=== PATIENT | female | born 1955 | race Two or more races ===

== ENCOUNTER 2017-07-29 19:51 | Emergency (ER) | payer OTHER ==
[~2017-07-29] VITALS: Ht 157.5 cm; Wt 79.8 kg
[~2017-07-29 19:51] MED LIST: ACETAMINOPHEN-1 EAC1 ORAL; ASPIRIN-LOW81 MG ORAL; BENAZEPRIL HCL20 MG ORAL; BP PILL; COLACE100 MG ORAL; ENALAPRIL MALEA10 MG ORAL; HYDROCHLOROTHIA25 MG ORAL; IBUPROFEN600 MG PO; IBUPROFEN800 MG ORAL; INSULIN; METFORMIN HCL1000 M1 ORAL; NORCO 5-325 TA1 EACH ORAL; NOVOLIN R100 UNIT/1 SUBQ; RANITIDINE HCL150 MG ORAL; UNOBMED; ZOFRAN ODT4 MG ORAL
[2017-07-29] MEDS ORDERED: DiphenhydrAMINE 50mg/ml Inj IVP ONE (20:15)
[2017-07-29] MEDS ORDERED: Metoclopramide 10mg/2ml Inj IVP ONE (20:15)
[2017-07-29] MEDS ORDERED: Morphine Sulfate 4mg/ml Inj IVP ONE (20:15)
[2017-07-29 20:35] LABS: ANION GAP 11 mmol/L (5-15); BLOOD UREA NITROGEN 16 mg/dL (7-18); CALCIUM 9.4 MG/DL (8.5-10.1); CARBON DIOXIDE 26 MMOL/L (21-32); CHLORIDE 100 MMOL/L (98-107); CREATININE 0.8 MG/DL (0.55-1.30); POTASSIUM 3.7 MMOL/L (3.5-5.1); SODIUM 137 MMOL/L (136-145)
[2017-07-29 20:40] LABS: ALANINE AMINOTRANSFERASE 65 U/L (12-78); ALBUMIN 4.1 G/DL (3.4-5.0); ALKALINE PHOSPHATASE 64 U/L (46-116); ASPARTATE AMINO TRANSFERASE 41 U/L (15-37); BILIRUBIN,TOTAL 0.3 MG/DL (0.2-1.0)
[2017-07-29 20:56] LABS: BASOPHILS % (AUTO) 1.3 % (0.0-2.0); HEMATOCRIT 42.9 % (37.0-47.0); LYMPHOCYTES % (AUTO) 32.1 % (20.0-45.0); MEAN CORPUSCULAR VOLUME 92 FL (80-99); MONOCYTES % (AUTO) 6.8 % (1.0-10.0); NEUTROPHILS % (AUTO) 57.9 % (45.0-75.0); PLATELET COUNT 335 K/UL (150-450); RED BLOOD COUNT 4.65 M/UL (4.20-5.40); RED CELL DISTRIBUTION WIDTH 11.3 % (11.6-14.8); WHITE BLOOD COUNT 8.9 K/UL (4.8-10.8)
[2017-07-29] MEDS ORDERED: PREDNISONE20 MG ORAL (21:41)
[2017-07-29] MEDS ORDERED: ACYCLOVIR400 MG ORAL (21:41)
[2017-07-29 21:52] VITALS: BP 137/67
--- NOTE | 2017-07-30 08:38 | Diagnostic Imaging Report ---
Indication: Headache Technique: Continuous helical CT scanning of the head was performed without intravenous contrast material. Axial and coronal 5 mm sections were generated. Radiation dose was minimized using automated exposure control Dose: Total Dose Length Product - DLP 1403.[address] Dose Index - CTDIvol(s) 70.38 mGy. Comparison: 03/06/2015 Findings: The ventricular system is normal in size and configuration. There is no shift of midline structures. No abnormal extra-axial fluid collections are noted. There is no evidence of intracerebral bleeding. No other abnormal high or low density areas are noted within the brain. The calvarium is intact. The riddle-white differentiation is normal Impression: Normal CT scan of the head without contrast material. This agrees with the preliminary interpretation provided overnight by [facility]erad[facility] service. The CT scanner at [facility] is accredited by the [employer] and the scans are performed using protocols designed to limit radiation exposure to as low as reasonably achievable to attain images of sufficient resolution adequate for diagnostic evaluation.
--- NOTE | 2017-07-31 02:06 | Emergency Room Report ---
History of Present Illness General Chief Complaint: Headache Source: Patient Present Illness HPI 62-year-old female presents ED complaining of headache 1 day. Was seen by PMD and referred here to rule out Weber's palsy. Pain is left-sided, sharp, 9/10. Denies photophobia or blurry vision. Denies neck stiffness. Denies nausea or vomiting. Denies slurred speech. No other aggravating or relieving factors. Denies any other associated symptoms Allergies: Coded Allergies: NO KNOWN ALLERGIES (Unverified Allergy, Unknown, 03/04/15) Patient History Past Medical History: DM, HTN Past Surgical History: none Pertinent Family History: none Social History: Denies: smoking, alcohol use, drug use Now: No Immunizations: UTD Reviewed Nursing Documentation: PMH: Agreed; PSxH: Agreed Nursing Documentation-PMH Hx Hypertension: Yes Hx Diabetes: Yes Review of Systems All Other Systems: negative except mentioned in HPI Physical Exam Vital Signs Date Time Temp Pulse Resp B/P (MAP) Pulse Ox O2 Delivery O2 Flow Rate FiO2 07/29/17 19:53 98.3 64 14 137/67 95 Room Air 98.2 Sp02 EP Interpretation: reviewed, normal General Appearance: no apparent distress, alert, GCS 15, non-toxic Head: normocephalic, atraumatic Eyes: bilateral eye normal inspection, bilateral eye PERRL ENT: hearing grossly normal, normal pharynx, no angioedema, normal voice Neck: full range of motion, supple/symm/no masses Respiratory: chest non-tender, lungs clear, normal breath sounds, speaking full sentences Cardiovascular #1: regular rate, rhythm, no edema Cardiovascular #2: 2+ carotid (R), 2+ carotid (L), 2+ radial (R), 2+ radial (L) , 2+ dorsalis pedis (R), 2+ dorsalis pedis (L) Gastrointestinal: normal bowel sounds, non tender, soft, non-distended, no guarding, no rebound Rectal: deferred Genitourinary: normal inspection, no CVA tenderness Musculoskeletal: back normal, gait/station normal, normal range of motion, non- tender Neurologic: alert, oriented x3, responsive, motor strength/tone normal, sensory intact, speech normal, other - R sided facial droop, unable to raise R eyebrow Psychiatric: judgement/insight normal, memory normal, mood/affect normal, no suicidal/homicidal ideation Reflexes: 3+ bicep (R), 3+ bicep (L), 3+ tricep (R), 3+ tricep (L), 3+ knee (R) , 3+ knee (L) Skin: normal color, no rash, warm/dry, well hydrated Lymphatic: no adenopathy Medical Decision Making Diagnostic Impression: Primary Impression: Weber's palsy ER Course Hospital Course 62-year-old female presents to ED complaining of headache 1 day, right-sided facial droop Differential diagnoses include: migraine, CVA/TIA, bells palsy Clinical course Patient placed on stretcher. on case monitor. After initial history, physical exam reveals an elderly female in no acute distress. There is no nuchal rigidity. Extraocular movements intact. There is no sensory deficit. Some mild facial droop on the right side. Unable to raise her eyebrow on the right. 5 out of 5 motor in both arms and legs. No sensory deficit I ordered labs, CT head, meds labs unremarkable CT brain - no acute process noted Discussed findings with patient and family. I agree with PMD assessment of Weber 's palsy. We will prescribe prednisone and acyclovir. Close follow-up with PMD I. I feel this is a highly complex case requiring extensive working including EKG/Rhythm strip, Xray/CT/US, Blood/urine lab work, repeat exams while in ED, and administration of strong opiates/narcotics for pain control, admission to hospital or close patient follow up. Diagnosis - [place] palsy Stable and discharged to home with prescription for acyclovir, prednisone. Follow-up with PMD. Return to ED if symptoms recur or worsen Labs Test 07/29/17 20:15 White Blood Count 8.9 K/UL (4.8-10.8) Red Blood Count 4.65 M/UL (4.20-5.40) Hemoglobin 15.0 G/DL (12.0-16.0) Hematocrit 42.9 % (37.0-47.0) Mean Corpuscular Volume 92 FL (80-99) Mean Corpuscular Hemoglobin 32.3 PG (27.0-31.0) Mean Corpuscular Hemoglobin Concent 35.0 G/DL (32.0-36.0) Red Cell Distribution Width 11.3 % (11.6-14.8) Platelet Count 335 K/UL (150-450) Mean Platelet Volume 7.5 FL (6.5-10.1) Neutrophils (%) (Auto) 57.9 % (45.0-75.0) Lymphocytes (%) (Auto) 32.1 % (20.0-45.0) Monocytes (%) (Auto) 6.8 % (1.0-10.0) Eosinophils (%) (Auto) 2.0 % (0.0-3.0) Basophils (%) (Auto) 1.3 % (0.0-2.0) Sodium Level 137 MMOL/L (136-145) Potassium Level 3.7 MMOL/L (3.5-5.1) Chloride Level 100 MMOL/L (98-107) Carbon Dioxide Level 26 MMOL/L (21-32) Anion Gap 11 mmol/L (5-15) Blood Urea Nitrogen 16 mg/dL (7-18) Creatinine 0.8 MG/DL (0.55-1.30) Estimat Glomerular Filtration Rate > 60 mL/min (>60) Glucose Level 184 MG/DL (74-106) Calcium Level 9.4 MG/DL (8.5-10.1) Total Bilirubin 0.3 MG/DL (0.2-1.0) Aspartate Amino Transf (AST/SGOT) 41 U/L (15-37) Alanine Aminotransferase (ALT/SGPT) 65 U/L (12-78) Alkaline Phosphatase 64 U/L (46-116) Total Protein 8.3 G/DL (6.4-8.2) Albumin 4.1 G/DL (3.4-5.0) Globulin 4.2 g/dL Albumin/Globulin Ratio 1.0 (1.0-2.7) CT/MRI/US Diagnostic Results CT/MRI/US Diagnostic Results : Imaging Test Ordered: CT Head Impression no acute process Last Vital Signs Date Time Temp Pulse Resp B/P (MAP) Pulse Ox O2 Delivery O2 Flow Rate FiO2 07/29/17 21:52 98.3 14 137/67 95 Room Air 98.2 07/29/17 19:53 64 Status: improved Disposition: HOME, SELF-CARE Condition: Stable Scripts Prednisone* (PREDNISONE*) 20 Mg Tablet 40 MG ORAL DAILY, #10 TAB Prov: Jefry Prince MD 07/29/17 Acyclovir* (ACYCLOVIR*) 400 Mg Tablet 400 MG ORAL FIVE TIMES A DAY for 10 Days, TAB Prov: Jefry Prince MD 07/29/17 Patient Instructions: Weber Palsy Jefry Prince MD July 31, 2017 02:06
== END 2017-07-29 22:07 | disposition home or self-care (01) ==
LOC: EMR 20:40
DX: G51.0 Bell's palsy (principal); R51 Headache; E11.9 Type 2 diabetes mellitus without complications; I10 Essential (primary) hypertension
CPT/HCPCS: 36415; 70450; 80053; 85025; 96374; 96375; 99284; J1200; J2270; J2765

== ENCOUNTER 2017-09-03 16:52 | Emergency (ER) | payer OTHER ==
[~2017-09-03] VITALS: Ht 160 cm; Wt 72.6 kg
[~2017-09-03 16:52] MED LIST changes: +ACYCLOVIR400 MG ORAL; +PREDNISONE20 MG ORAL
[2017-09-03 17:23] VITALS: BP 135/70
[2017-09-03] MEDS ORDERED: Acetaminophen 500mg (ES) tab ORAL ONE (18:00)
--- NOTE | 2017-09-03 18:55 | Emergency Room Report ---
History of Present Illness General Chief Complaint: General Complaint Source: Patient Present Illness HPI 62-year-old female patient presents to ER complaining of left eyelid drooping and headache for the past 8 days. Reports hx of headache. Patient was previously seen in the ER one month ago for similar symptoms in her right eye, diagnosed with Weber's palsy at that time. Imaging and labs performed at that time negative for acute disease. States she followed up with primary care but has not received referral to neurology, was seen by primary care provider today and instructed reports the ER so that she could have neurological referral because not able to get a referral done by PCP office. Complains of nose, mouth , ear pain. Denies difficulty walking. Denies difficulty with speech. Denies chest pain, shortness of breath, abdominal pain. Denies muscle weakness. Denies difficulty eating. Denies eye crusting, FB sensation, or pain with eye movement. Allergies: Coded Allergies: NO KNOWN ALLERGIES (Unverified Allergy, Unknown, 03/04/15) Patient History Past Medical History: see triage record Reviewed Nursing Documentation: PMH: Agreed; PSxH: Agreed Nursing Documentation-PMH Past Medical History: No History, Except For Hx Hypertension: Yes Hx Diabetes: Yes Review of Systems All Other Systems: negative except mentioned in HPI Physical Exam Vital Signs Date Time Temp Pulse Resp B/P (MAP) Pulse Ox O2 Delivery O2 Flow Rate FiO2 09/03/17 17:09 98.1 66 16 135/70 94 Room Air 98.1 Sp02 EP Interpretation: reviewed, normal General Appearance: well appearing, no apparent distress, alert, GCS 15, non- toxic Head: normocephalic, atraumatic Eyes: bilateral eye normal inspection, bilateral eye PERRL ENT: hearing grossly normal, normal pharynx, no angioedema, normal voice, uvula midline, moist mucus membranes Neck: full range of motion, no meningismus Respiratory: lungs clear, normal breath sounds, no rhonchi, no respiratory distress, no accessory muscle use, no wheezing, speaking full sentences Cardiovascular #1: regular rate, rhythm, no edema Genitourinary: no CVA tenderness Musculoskeletal: back normal, digits/nails normal, gait/station normal, normal range of motion, non-tender Neurologic: alert, oriented x3, responsive, stna III-XII nml as tested, motor strength/tone normal, SLR negative, sensory intact, cerebellar normal, normal gait, speech normal, other - Left eyelid droop, Able to open and close, Able to smile, able to furrow eyebrows; Negative Kernig, negative Brudzinski Psychiatric: mood/affect normal Skin: no rash Medical Decision Making PA Attestation Dr. Borden is my supervising Physician whom patient management has been discussed with. Diagnostic Impression: Primary Impression: Headache Additional Impression: Drooping eyelid ER Course Pt presents to ED c/o headache and eye droop. DDX considered but are not limited to migraine, cluster AVILES, tension AVILES, meningitis, ICH, [place] palsy, myasthenia gravis, Lyme disease. negative Kernig and Brudzinski, low suspicion for meningitis. VITAL SIGNS are WNL, patient is afebrile ER COURSE patient initially reported unable to open eye at all however during course of ER stay visualize patient able to open left eye slightly, no injection noted. Physical exam shows left eyelid drooping, full ROM of EOM when eyelid raised, eyebrows able to be furrowed, no loss of smile. remained of physical exam benign. 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 Cranial nerves intact, no focal neuro deficits, low suspicion for stroke. Patient had labs performed previously, does not require repeat labs at this time , reviewed previous report from previous visit at [facility]. Patient complains of vision loss however was able to state how many fingers we being held. Patient complains of generalized headache that is causing neck pain and other symptoms, likely tension headache, will provide treatment. Patient seen and evaluated by Dr. Borden. Will order MRI to rule out underlying pathology. Low suspicion for myasthenia gravis at this time, patient has no complaints of muscle weakness, breathing difficulties. However, patient needs followup with outpatient neuro for further treatment and evaluation. Due to length of symptom, hx of symptoms, no chest pain, no palpitations, no loss of strength or sensations in extremities, low suspicion for cerebrovascular event, does not require labs at this time. MRI negative for acute disease, no infarct. CXR negative for acute disease. Low suspicion for Weber's palsy, patient able to furrow brow and wrinkle forehead. Low suspicion for stroke due to length of symptoms and onset. Droopy eyelid requires further evaluation and management by neurology. Followup with PCP and ophthalmology, discuss further treatment and referrals as needed at that time. if unable to receive treatment from PCP or referral, follow -up with [facility] for neurology consult. Patient reports pain improved since arrival at ER. Patient is AOx3, neurologically intact, nontoxic appearing, ambulatory, talking and smiling without difficulty. DISCHARGE: -Rx provided Tylenol for headache symptoms. At this time pt is stable for d/c to home. Patient is resting comfortably, in no acute distress, nontoxic appearing, talking and smiling. Will provide with patient care instructions and any necessary prescriptions. Patient to take medication as instructed. Care plan and follow-up instructions provided. Patient questions asked and answered. Patient instructed to follow-up with primary care provider in the next 3 days and discuss further referral with PCP to neurologist. ER precautions given. Patient instructed to return to ER immediately for any new or worsening of symptoms including but not limited to fever, neck stiffness , vision changes, and neurological symptoms. - Please note that this Emergency Department Report was dictated using [employer] helper technology software, occasionally this can lead to erroneous entry secondary to interpretation by the dictation equipment. Chest X-Ray Diagnostic Results Chest X-Ray Diagnostic Results : Chest X-Ray Ordered: Yes # of Views/Limited/Complete: 1 View Indication: Chest Pain EP Interpretation: Yes PA Xray: Interpretation reviewed, by supervising MD, and agrees with findings. Interpretation: no consolidation, no effusion, no pneumothorax, no acute cardiopulmonary disease Impression: No acute disease ADRYAN ScribKaren Harvey PA-C CT/MRI/US Diagnostic Results CT/MRI/US Diagnostic Results : Imaging Test Ordered: MRI Impression negative for acute disease Last Vital Signs Date Time Temp Pulse Resp B/P (MAP) Pulse Ox O2 Delivery O2 Flow Rate FiO2 09/03/17 18:12 98.1 09/03/17 17:23 78 16 135/70 94 Room Air Disposition: HOME, SELF-CARE Condition: Stable Scripts Acetaminophen* (TYLENOL EXTRA STRENGTH*) 500 Mg Tablet 500 MG ORAL Q8H PRN for Prn Headache/Temp > 101, #30 TAB 0 Refills Prov: Ashu Harvey 09/03/17 Referrals: [facility],REFERRING (PCP) Patient Instructions: Ptosis Repair, Tension Headache, [id number] Additional Instructions: Followup with primary care provider in 3 -5 days. Discuss referral to neurology and ophthalmology as needed. If unable to be seen by PCP or get referral to neurology, followup with [facility]. Take medications as directed. Patient questions asked and answered. ER precautions given, patient instructed to return to ER immediately for any new or worsening of symptoms. Ashu Harvey. Sep 03, 2017 18:55
--- NOTE | 2017-09-03 19:09 | Diagnostic Imaging Report ---
EXAM: XR Chest, 1 View CLINICAL HISTORY: CP TECHNIQUE: Frontal view of the chest. COMPARISON: FINDINGS: Lungs: No consolidation. Pleural space: Unremarkable. No pneumothorax. Heart: Mild cardiomegaly Mediastinum: Unremarkable. Bones/joints: No acute fracture. IMPRESSION: No acute findings.
--- NOTE | 2017-09-03 20:39 | Diagnostic Imaging Report ---
EXAM: MR Head Without Intravenous Contrast CLINICAL HISTORY: PAIN TECHNIQUE: Magnetic resonance images of the head/brain without intravenous contrast in multiple planes. COMPARISON: CT 07/29/17 FINDINGS: Brain: Unremarkable. No mass. No hemorrhage. No acute infarct. Ventricles: Unremarkable. No ventriculomegaly. Bones/joints: Unremarkable. Sinuses: Unremarkable as visualized. No acute sinusitis. Mastoid air cells: Unremarkable as visualized. No mastoid effusion. Orbits: Unremarkable as visualized. IMPRESSION: No acute process.
[2017-09-03] MEDS ORDERED: TYLENOL EXTRA500 MG ORAL (21:06)
[2017-09-03 21:25] VITALS: BP 129/68
== END 2017-09-03 21:25 | disposition home or self-care (01) ==
LOC: EMR 17:16
DX: R51 Headache (principal); H02.402 Unspecified ptosis of left eyelid; I10 Essential (primary) hypertension; E11.9 Type 2 diabetes mellitus without complications
CPT/HCPCS: 70551; 71045; 99284

== ENCOUNTER 2018-01-19 11:33 | Emergency (ER) | payer OTHER ==
[~2018-01-19] VITALS: Ht 162.6 cm; Wt 72.6 kg
[~2018-01-19 11:33] MED LIST changes: +CHLOR-TRIMETON4 MG PO; +CIPROFLOXACIN500 M2 ORAL; +ONDANSETRON ODT4 MG BC; +TYLENOL EXTRA500 MG ORAL
[2018-01-19 11:36] VITALS: BP 167/65
[2018-01-19 12:30] LABS: APPEARANCE,URINE CLEAR; BILIRUBIN, URINE NEGATIVE (NEGATIVE); COLOR,URINE PALE YELLOW; GLUCOSE, URINE (UA) 4+ (NEGATIVE); KETONES,URINE NEGATIVE (NEGATIVE); LEUKOCYTE ESTERASE ,URINE NEGATIVE (NEGATIVE); NITRITE,URINE NEGATIVE (NEGATIVE); PH,URINE 6.5 (4.5-8.0); PROTEIN,URINE NEGATIVE (NEGATIVE); UROBILINOGEN,URINE NORMAL MG/DL (0.0-1.0)
--- NOTE | 2018-01-19 14:02 | Emergency Room Report ---
History of Present Illness General Chief Complaint: General Complaint Source: Patient, Medical Record Present Illness HPI Patient is asked to return because urine grew out resistant organism. The patient still is having suprapubic and left lower quadrant pain. This been going on for 6 years. She is treated for UTIs and it gets better for periods of time. She states that Pyridium doesn't help. Motrin has not helped very much with the pain either. She denies any constipation. She recently had colonoscopy done December 23 and 2 polyps were removed. Normal BMs. The pain is rated 0/10 to social media assistant, but she reports discomfort. She also states she still has dysuria. She also recently saw her Ob and was told everything was "normal". The initial visit was 12/28 and seen for NVD. UTI found. NVD resolved. Treated with Cipro. Urine grew E coli resistant to cipro (50 - [address] K). [address] in 2015 revealed hysterectomy, but no other abnormalities. At that time she had epigastric pain radiating to LLQ. She had been taking ibuprofen without relief. Hysterectomy, ovaries preserved. She denies domestic abuse and feels safe at home. She was seen 2014 for head injury when she slipped and hit her head on a counter (3 visits). Seen July this year with Weber's palsy. Resolved. H/O diabetes - metformin and insulin. States "ate a lot last night". H/O HTN - treated with benazepril and HCTZ. Chronic sinus problems. Chlorpheniramine prescribed last visit. No active sy. Allergies: Coded Allergies: NO KNOWN ALLERGIES (Unverified Allergy, Unknown, 03/04/15) Patient History Past Medical History: see triage record, old chart reviewed Past Surgical History: hysterectomy Social History: Denies: smoking, alcohol use, drug use Social History Narrative with and son Reviewed Nursing Documentation: PMH: Agreed; PSxH: Agreed Nursing Documentation-PMH Past Medical History: No History, Except For Hx Hypertension: Yes Hx Diabetes: Yes Review of Systems All Other Systems: negative except mentioned in HPI Physical Exam Vital Signs Date Time Temp Pulse Resp B/P (MAP) Pulse Ox O2 Delivery O2 Flow Rate FiO2 01/19/18 11:36 78 18 Room Air 01/19/18 11:36 98.1 167/65 95 Sp02 EP Interpretation: reviewed, normal General Appearance: well appearing, no apparent distress, GCS 15 Head: normocephalic Eyes: bilateral eye normal inspection, bilateral eye PERRL ENT: moist mucus membranes Neck: supple Respiratory: lungs clear, normal breath sounds Cardiovascular #1: regular rate, rhythm Cardiovascular #2: 2+ radial (R) Gastrointestinal: normal inspection, normal bowel sounds, no mass, non- distended, no guarding, no rebound, tenderness - LLQ Genitourinary: no CVA tenderness Musculoskeletal: back normal, gait/station normal, normal range of motion Neurologic: alert, oriented x3, grossly normal Psychiatric: mood/affect normal - concerned Skin: normal inspection, warm/dry Medical Decision Making Diagnostic Impression: Primary Impression: Pelvic pain Additional Impressions: Diabetes Qualified Codes: E11.8 - Type 2 diabetes mellitus with unspecified complications; Z79.4 - [facility] (current) use of insulin HTN (hypertension) Qualified Codes: I10 - Essential (primary) hypertension ER Course Patient re-presents due to resistant e coli with continued symptoms. DDX; resistant UTI, ovarian cyst, other ovarian pathology, post surgical pain, somatization, diverticulitis amongst others. Latter less likely as recent colonoscopy. UA indicated. Not toxic and no other labs indicated at this time. Tylenol given. UA clear but with 4+ glucose. Accucheck 271. Exam benign. Discussed possible etiologies and need to follow up with Ob and suggested ultrasound and ovarian serology. Also discussed glucose control. Patient stable for outpatient observation and treatment. Laboratory Tests Test 01/19/18 12:00 Urine Color Pale yellow Urine Appearance Clear Urine pH 6.5 (4.5-8.0) Urine Specific [place] 1.010 (1.005-1.035) Urine Protein Negative (NEGATIVE) Urine Glucose (UA) 4+ (NEGATIVE) H Urine Ketones Negative (NEGATIVE) Urine Blood Negative (NEGATIVE) Urine Nitrite Negative (NEGATIVE) Urine Bilirubin Negative (NEGATIVE) Urine Urobilinogen Normal MG/DL (0.0-1.0) Urine Leukocyte Esterase Negative (NEGATIVE) Last Vital Signs Date Time Temp Pulse Resp B/P (MAP) Pulse Ox O2 Delivery O2 Flow Rate FiO2 01/19/18 13:29 98.1 01/19/18 11:37 78 18 167/75 95 Room Air Status: improved Disposition: HOME, SELF-CARE Condition: Improved Scripts Tramadol Hcl* (ULTRAM*) 50 Mg Tablet 50 MG ORAL Q6H PRN for For Pain, #8 TAB 0 Refills Prov: Alvaro Schmid MD 01/19/18 Acetaminophen (Tylenol) 325 Mg Tablet 650 MG ORAL Q6H PRN for Prn Pain/Headache/Temp > 101, #20 TAB 0 Refills Prov: Alvaro Schmid MD 01/19/18 Ibuprofen* (MOTRIN*) 600 Mg Tablet 600 MG ORAL Q6H PRN for For Pain, #16 TAB Prov: Alvaro Schmid MD 01/19/18 Referrals: NON PHYSICIAN (PCP) Alvaro Schmid MD Jan 19, 2018 14:02
[2018-01-19] MEDS ORDERED: TYLENOL325 MG ORAL (14:19)
[2018-01-19] MEDS ORDERED: TRAMADOL HCL50 MG ORAL (14:19)
[2018-01-19] MEDS ORDERED: IBUPROFEN600 MG ORAL (14:19)
[2018-01-19 14:31] VITALS: BP 157/64
[2018-01-19 14:32] VITALS: BP 167/75
== END 2018-01-19 14:34 | disposition home or self-care (01) ==
LOC: EMR 12:50
DX: R10.2 Pelvic and perineal pain (principal); E11.9 Type 2 diabetes mellitus without complications; Z79.4 Long term (current) use of insulin; A49.8 Other bacterial infections of unspecified site; B96.20 Unspecified Escherichia coli [E. coli] as the cause of diseases classified elsewhere; Z86.010 Personal history of colon polyps; Z16.30 Resistance to unspecified antimicrobial drugs; R30.0 Dysuria; Z87.09 Personal history of other diseases of the respiratory system; Z90.710 Acquired absence of both cervix and uterus
CPT/HCPCS: 81003; 99283

== ENCOUNTER 2018-02-11 17:30 | Emergency (ER) | payer OTHER ==
[~2018-02-11] VITALS: Ht 152.4 cm; Wt 78.5 kg
[~2018-02-11 17:30] MED LIST changes: +IBUPROFEN600 MG ORAL; +TRAMADOL HCL50 MG ORAL; +TYLENOL325 MG ORAL
[2018-02-11] MEDS ORDERED: ASPIR 8181 MG ORAL (17:41)
[2018-02-11 17:45] VITALS: BP 151/78
[2018-02-11] MEDS ORDERED: Dicyclomine HCl 10mg/5ml oral soln ORAL ONE (18:30)
[2018-02-11] MEDS ORDERED: Isovue-300 100ml vial INJ PRN (18:30)
[2018-02-11 18:35] LABS: APPEARANCE,URINE CLEAR; BILIRUBIN, URINE NEGATIVE (NEGATIVE); COLOR,URINE PALE YELLOW; GLUCOSE, URINE (UA) 4+ (NEGATIVE); KETONES,URINE NEGATIVE (NEGATIVE); LEUKOCYTE ESTERASE ,URINE 1+ (NEGATIVE); NITRITE,URINE NEGATIVE (NEGATIVE); PH,URINE 7 (4.5-8.0); PROTEIN,URINE 1+ (NEGATIVE); UROBILINOGEN,URINE NORMAL MG/DL (0.0-1.0)
[2018-02-11 18:42] LABS: ANION GAP 9 mmol/L (5-15); BASOPHILS % (AUTO) 1.1 % (0.0-2.0); BLOOD UREA NITROGEN 18 mg/dL (7-18); CALCIUM 9.7 MG/DL (8.5-10.1); CARBON DIOXIDE 29 MMOL/L (21-32); CHLORIDE 101 MMOL/L (98-107); EOSINOPHILS % (AUTO) 2.6 % (0.0-3.0); HEMOGLOBIN 15.4 G/DL (12.0-16.0); LYMPHOCYTES % (AUTO) 31.4 % (20.0-45.0); MEAN CORPUSCULAR VOLUME 92 FL (80-99); MONOCYTES % (AUTO) 8.3 % (1.0-10.0); NEUTROPHILS % (AUTO) 56.6 % (45.0-75.0); PLATELET COUNT 408 K/UL (150-450); POTASSIUM 3.8 MMOL/L (3.5-5.1); RED CELL DISTRIBUTION WIDTH 11.5 % (11.6-14.8); SODIUM 139 MMOL/L (136-145); WHITE BLOOD COUNT 9.6 K/UL (4.8-10.8)
[2018-02-11 18:47] LABS: ALANINE AMINOTRANSFERASE 51 U/L (12-78); ALBUMIN 4.1 G/DL (3.4-5.0); ALBUMIN/GLOBULIN RATIO 0.9 (1.0-2.7); ALKALINE PHOSPHATASE 82 U/L (46-116); ASPARTATE AMINO TRANSFERASE 33 U/L (15-37); BILIRUBIN,TOTAL 0.3 MG/DL (0.2-1.0)
[2018-02-11] MEDS ORDERED: cefTRIAXone 1 GM in NS 55 ML IVPB ONE (19:00)
[2018-02-11] MEDS ORDERED: CEPHALEXIN500 MG ORAL (19:14)
[2018-02-11] MEDS ORDERED: METFORMIN HCL500 M1 ORAL (19:14)
--- NOTE | 2018-02-11 20:41 | Diagnostic Imaging Report ---
EXAM: CT Abdomen and Pelvis With Intravenous Contrast CLINICAL HISTORY: Right lower quadrant pain for 7 days. Nausea vomiting and diarrhea for one day. TECHNIQUE: Axial computed tomography images of the abdomen and pelvis with intravenous contrast. CTDI is 0.15, 19.07 mGy and DLP is 1005 mGy-cm. One or more of the following dose reduction techniques were used: automated exposure control, adjustment of the mA and/or kV according to patient size, use of iterative reconstruction technique. Coronal and sagittal reformatted images were created and reviewed. COMPARISON: 11/24/15 FINDINGS: Lung bases: Mild atelectasis at the lung bases. Heart: Mild cardiomegaly. Mediastinum: Small hiatal hernia. ABDOMEN: Liver: The liver is unremarkable. Gallbladder and bile ducts: The gallbladder is unremarkable. No calcified stones. No ductal dilation. Pancreas: The pancreas is unremarkable. No ductal dilation. Spleen: The spleen is unremarkable. Adrenals: The adrenals are unremarkable. Kidneys and ureters: Mild contour irregularity of the kidneys suggestive of scarring. No hydronephrosis. Stomach and bowel: No evidence for bowel related inflammatory changes. No evidence for significant bowel loop dilation to suggest an obstructive process. PELVIS: Appendix: The appendix is normal. Bladder: Small focus of gas in the bladder which may be related to prior bladder catheterization. An infectious process cannot be excluded radiographically. Reproductive: The uterus is not visualized. ABDOMEN and PELVIS: Intraperitoneal space: No free intraperitoneal fluid or free intraperitoneal gas. Bones/joints: Mild degenerative changes of the thoracolumbar spine. Bilateral spondylolysis at L5 which appears chronic. No acute fracture. No dislocation. Soft tissues: Unremarkable. Vasculature: The aorta is unremarkable. No abdominal aortic aneurysm. Lymph nodes: Unremarkable. No enlarged lymph nodes. IMPRESSION: 1. Mild cardiomegaly. 2. Small hiatal hernia. 3. Small focus of gas in the bladder which may be related to prior bladder catheterization. An infectious process cannot be excluded radiographically.
[2018-02-11 21:04] VITALS: BP 15/78
--- NOTE | 2018-02-12 22:08 | Emergency Room Report ---
History of Present Illness General Chief Complaint: Abdominal Pain Source: Medical Record Present Illness HPI Patient is 62-year-old female presented after increased abdominal pain. Patient reports having increased generalized abdominal discomfort. She reports having asthma symptoms in the past for several weeks. She reports having increased left-sided abdominal pain which he describes as crampy in nature and like gas.. Previous symptoms in the past this had been going on for approximately 2 weeks. Patient denied any recent fever. She not been vomiting or having diarrhea. Allergies: Coded Allergies: NO KNOWN ALLERGIES (Unverified Allergy, Unknown, 03/04/15) Patient History Past Medical History: see triage record Now: No Reviewed Nursing Documentation: PMH: Agreed; PSxH: Agreed Nursing Documentation-PMH Hx Hypertension: Yes Hx Diabetes: Yes Review of Systems All Other Systems: negative except mentioned in HPI Physical Exam Vital Signs Date Time Temp Pulse Resp B/P (MAP) Pulse Ox O2 Delivery O2 Flow Rate FiO2 02/11/18 17:35 98.2 81 24 156/70 94 Room Air Sp02 EP Interpretation: reviewed, normal General Appearance: normal inspection, well appearing, no apparent distress, alert, GCS 15, non-toxic Head: atraumatic ENT: normal ENT inspection, hearing grossly normal, normal voice Neck: normal inspection, full range of motion, supple, no bony tend Respiratory: normal inspection, lungs clear, normal breath sounds, no respiratory distress, no retraction, no wheezing Cardiovascular #1: regular rate, rhythm, no edema Gastrointestinal: normal inspection, normal bowel sounds, non tender, soft, no guarding, no hernia Genitourinary: no CVA tenderness Musculoskeletal: normal inspection, back normal, normal range of motion Neurologic: normal inspection, alert, oriented x3, responsive, plastic duplicator III-XII nml as tested, motor strength/tone normal, speech normal Psychiatric: normal inspection, judgement/insight normal, mood/affect normal Skin: normal inspection, normal color, no rash Medical Decision Making Diagnostic Impression: Primary Impression: UTI (urinary tract infection) ER Course Patient presented for abdominal pain. Differential diagnoses included ischemic bowel, appendicitis, perforated viscus, abdominal aortic aneurysm, inferior myocardial infarction, viral gastroenteritis Because of complexity of patient's case laboratory testing and imaging studies were ordered. Urinalysis showed some evidence of urinary infection.CT imaging of the abdomen pelvis no evidence of acute intra-abdominal pathology. Patient was noted to have evidence of urinary tract infection.Patient is given prescription for oral antibiotics. The patient was noted to have improvement in her symptoms after medications.The patient is advised to follow up with primary care doctor in 1-2 days. Patient is advised to return if any worsening condition or if any changes in status that are concerning. This report is dictated with [employer] manager care software which may occasionally lead to discrepancies related to use of this software. Labs Test 02/11/18 18:23 White Blood Count 9.6 K/UL (4.8-10.8) Red Blood Count 4.90 M/UL (4.20-5.40) Hemoglobin 15.4 G/DL (12.0-16.0) Hematocrit 45.0 % (37.0-47.0) Mean Corpuscular Volume 92 FL (80-99) Mean Corpuscular Hemoglobin 31.4 PG (27.0-31.0) Mean Corpuscular Hemoglobin Concent 34.2 G/DL (32.0-36.0) Red Cell Distribution Width 11.5 % (11.6-14.8) Platelet Count 408 K/UL (150-450) Mean Platelet Volume 6.2 FL (6.5-10.1) Neutrophils (%) (Auto) 56.6 % (45.0-75.0) Lymphocytes (%) (Auto) 31.4 % (20.0-45.0) Monocytes (%) (Auto) 8.3 % (1.0-10.0) Eosinophils (%) (Auto) 2.6 % (0.0-3.0) Basophils (%) (Auto) 1.1 % (0.0-2.0) Prothrombin Time 10.4 SEC (9.30-11.50) Prothromb Time International Ratio 1.0 (0.9-1.1) Activated Partial Thromboplast Time 28 SEC (23-33) Urine Color Pale yellow Urine Appearance Clear Urine pH 7 (4.5-8.0) Urine Specific [place] 1.010 (1.005-1.035) Urine Protein 1+ (NEGATIVE) Urine Glucose (UA) 4+ (NEGATIVE) Urine Ketones Negative (NEGATIVE) Urine Blood 1+ (NEGATIVE) Urine Nitrite Negative (NEGATIVE) Urine Bilirubin Negative (NEGATIVE) Urine Urobilinogen Normal MG/DL (0.0-1.0) Urine Leukocyte Esterase 1+ (NEGATIVE) Urine RBC 2-4 /HPF (0 - 2) Urine WBC 5-10 /HPF (0 - 2) Urine Squamous Epithelial Cells Few /LPF (NONE/OCC) Urine Bacteria Few /HPF (NONE) Sodium Level 139 MMOL/L (136-145) Potassium Level 3.8 MMOL/L (3.5-5.1) Chloride Level 101 MMOL/L (98-107) Carbon Dioxide Level 29 MMOL/L (21-32) Anion Gap 9 mmol/L (5-15) Blood Urea Nitrogen 18 mg/dL (7-18) Creatinine 1.0 MG/DL (0.55-1.30) Estimat Glomerular Filtration Rate 55.8 mL/min (>60) Glucose Level 330 MG/DL (74-106) Calcium Level 9.7 MG/DL (8.5-10.1) Total Bilirubin 0.3 MG/DL (0.2-1.0) Aspartate Amino Transf (AST/SGOT) 33 U/L (15-37) Alanine Aminotransferase (ALT/SGPT) 51 U/L (12-78) Alkaline Phosphatase 82 U/L (46-116) Total Protein 8.9 G/DL (6.4-8.2) Albumin 4.1 G/DL (3.4-5.0) Globulin 4.8 g/dL Albumin/Globulin Ratio 0.9 (1.0-2.7) Lipase 331 U/L (73-393) Last Vital Signs Date Time Temp Pulse Resp B/P (MAP) Pulse Ox O2 Delivery O2 Flow Rate FiO2 02/11/18 21:04 98.1 70 12 15/ 98 Room Air Status: improved Disposition: HOME, SELF-CARE Condition: Stable Scripts Metformin Hcl* (METFORMIN HCL*) 500 Mg Tablet 500 MG ORAL TWICE A DAY, #60 TAB Prov: Dalton Grewal MD 02/11/18 Cephalexin* (KEFLEX*) 500 Mg Capsule 500 MG ORAL EVERY 6 HOURS, #28 CAP Prov: Dalton Grewal MD 02/11/18 Referrals: [facility],REFERRING (PCP) Patient Instructions: Abdominal Pain, Adult Additional Instructions: Do not take metformin for 48 hours. Follow up with primary care physician for recheck. Dalton Grewal MD Feb 12, 2018 22:08
== END 2018-02-11 21:05 | disposition home or self-care (01) ==
LOC: EMR 17:55
DX: N39.0 Urinary tract infection, site not specified (principal); I10 Essential (primary) hypertension; E11.9 Type 2 diabetes mellitus without complications
CPT/HCPCS: 36415; 74177; 80053; 81003; 83690; 85025; 85610; 85730; 96361; 96365; 99284; J0696; Q9967

== ENCOUNTER 2018-03-02 11:58 | Emergency (ER) | payer OTHER ==
[~2018-03-02] VITALS: Ht 160 cm; Wt 78.9 kg
[~2018-03-02 11:58] MED LIST changes: +ASPIR 8181 MG ORAL; +CEPHALEXIN500 MG ORAL; +METFORMIN HCL500 M1 ORAL
[2018-03-02 12:11] VITALS: BP 155/72
--- NOTE | 2018-03-02 12:52 | Emergency Room Report ---
History of Present Illness General Chief Complaint: General Complaint Source: Patient Present Illness HPI 62F c/o three days numbness sensation left forehead/cheek. Not better not worse , although Ibuprofen has been helpful for neck strain. No trauma, no headache, no fever, no URI. Pt. on daily aspirin. Pt. 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 CRF: htn, NIDDM Allergies: Coded Allergies: NO KNOWN ALLERGIES (Unverified Allergy, Unknown, 03/04/15) Patient History Now: No Nursing Documentation-[facility] Past Medical History: No History, Except For Hx Hypertension: Yes Hx Diabetes: Yes Review of Systems Constitutional: Reports: see HPI Eye: Reports: no symptoms ENT: Reports: no symptoms Respiratory: Reports: no symptoms Cardiovascular: Reports: no symptoms Gastrointestinal: Reports: no symptoms Genitourinary: Reports: no symptoms Musculoskeletal: Reports: no symptoms Skin: Reports: no symptoms Psychiatric: Reports: no symptoms Neurological: Reports: numbness, tingling Endocrine: Reports: no symptoms Hematologic/Lymphatic: Reports: no symptoms Allergic: Reports: no symptoms All Other Systems: negative except mentioned in HPI Physical Exam Vital Signs Date Time Temp Pulse Resp B/P (MAP) Pulse Ox O2 Delivery O2 Flow Rate FiO2 03/02/18 12:00 99.0 90 20 140/73 99 Room Air Sp02 EP Interpretation: reviewed, normal General Appearance: normal inspection, well appearing, no apparent distress, alert, GCS 15, non-toxic, other - anxious Head: normocephalic, atraumatic Eyes: bilateral eye normal inspection, bilateral eye PERRL, bilateral eye EOMI ENT: normal ENT inspection, hearing grossly normal, normal pharynx, no angioedema, normal voice, moist mucus membranes Neck: normal inspection, full range of motion, supple, no meningismus, no bony tend Respiratory: normal inspection, lungs clear, normal breath sounds, no rhonchi, no respiratory distress, no retraction, no accessory muscle use, no wheezing Cardiovascular #1: normal inspection, regular rate, rhythm, no edema Gastrointestinal: normal inspection, normal bowel sounds, non tender, soft, no mass, non-distended Musculoskeletal: gait/station normal, normal range of motion Neurologic: normal inspection, alert, oriented x3, responsive, motor strength/ tone normal Psychiatric: normal inspection, judgement/insight normal, memory normal Suicide Risk Assessment: Suicidal Ideation: No Had intent to initiate attempt: No Pt's plan for suicide attempt: No Has means to complete attempt: No Skin: normal inspection, normal color, no rash, warm/dry Medical Decision Making Diagnostic Impression: Primary Impression: Anxiety ER Course with Eliot stevens, pt. understands she did not have a stroke a few months ago (here) will continue baby aspirin per her PMD chronic recommendation A: pt's symptoms are inconsistent with stroke and there are no abnormal PE findings at all P: no workup indicated. reassurance Rhythm Strip Diag. Results Rhythm Strip Time: 12:52 EP Interpretation: yes Rate: 75 Rhythm: NSR Last Vital Signs Date Time Temp Pulse Resp B/P (MAP) Pulse Ox O2 Delivery O2 Flow Rate FiO2 03/02/18 12:11 82 20 Room Air 03/02/18 12:11 99.0 155/72 96 Status: improved Disposition: HOME, SELF-CARE Condition: Stable Referrals: [facility],REFERRING (PCP) Patient Instructions: Paresthesia, [id number] Johnny Dominguez M.D. Mar 02, 2018 12:52
[2018-03-02 13:06] LABS: ANION GAP 12 mmol/L (5-15); BLOOD UREA NITROGEN 13 mg/dL (7-18); CALCIUM 9.7 MG/DL (8.5-10.1); CARBON DIOXIDE 25 MMOL/L (21-32); CHLORIDE 104 MMOL/L (98-107); CREATININE 0.8 MG/DL (0.55-1.30); POTASSIUM 4.3 MMOL/L (3.5-5.1); SODIUM 141 MMOL/L (136-145)
[2018-03-02 13:14] LABS: BASOPHILS % (AUTO) 0.8 % (0.0-2.0); HEMOGLOBIN 14.5 G/DL (12.0-16.0); LYMPHOCYTES % (AUTO) 22.2 % (20.0-45.0); MEAN CORPUSCULAR VOLUME 95 FL (80-99); MONOCYTES % (AUTO) 6.2 % (1.0-10.0); NEUTROPHILS % (AUTO) 69.7 % (45.0-75.0); PLATELET COUNT 336 K/UL (150-450); RED BLOOD COUNT 4.51 M/UL (4.20-5.40); RED CELL DISTRIBUTION WIDTH 11.6 % (11.6-14.8); WHITE BLOOD COUNT 10.2 K/UL (4.8-10.8)
[2018-03-02 13:17] VITALS: BP 144/82
== END 2018-03-02 13:21 | disposition home or self-care (01) ==
LOC: EMR 12:31
DX: F41.9 Anxiety disorder, unspecified (principal); I10 Essential (primary) hypertension; E11.9 Type 2 diabetes mellitus without complications
CPT/HCPCS: 36415; 80048; 85025; 99283

== ENCOUNTER 2018-03-23 13:13 | Emergency (ER) | payer OTHER ==
[~2018-03-23] VITALS: Ht 160 cm; Wt 78.9 kg
--- NOTE | 2018-03-23 13:26 | NUR ---
ED Nurse Note: Pt came into the ER w/ complaints of pain upon urination x 1 week. Pt has been on atb cipro, azithromycin. A + O x4. Ambulatory. Pt is in the restroom providing urine.
[2018-03-23 13:28] VITALS: BP 175/75
--- NOTE | 2018-03-23 13:31 | NUR ---
ED Nurse Note: Urine has been collected and sent to lab.
[2018-03-23 13:52] LABS: APPEARANCE,URINE CLEAR; BILIRUBIN, URINE NEGATIVE (NEGATIVE); COLOR,URINE PALE YELLOW; GLUCOSE, URINE (UA) NEGATIVE (NEGATIVE); KETONES,URINE NEGATIVE (NEGATIVE); LEUKOCYTE ESTERASE ,URINE NEGATIVE (NEGATIVE); NITRITE,URINE NEGATIVE (NEGATIVE); PH,URINE 7 (4.5-8.0); PROTEIN,URINE NEGATIVE (NEGATIVE); UROBILINOGEN,URINE NORMAL MG/DL (0.0-1.0)
--- NOTE | 2018-03-23 14:31 | Emergency Room Report ---
History of Present Illness General Chief Complaint: Female Urogenital Problems Source: Patient Present Illness HPI 62-year-old female patient presents the ER complaining with pain with urination for the past 2 weeks. Reports was previously seen by her primary care provider a week ago and was given 1 single dose of Cipro and azithromycin while at the office, contrary to triage note had taken one dose of medication. States has not been taking any toto-[id number] antibiotics or being prescribed any prescriptions. Denies vaginal discharge. Denies hematuria. Denies fever, chest pain, shortness of breath, abdominal pain, flank pain. Denies other acute aggravating or relieving factors. Patient states she has an appointment with [facility] specialist on April 16 next month. Allergies: Coded Allergies: NO KNOWN ALLERGIES (Unverified Allergy, Unknown, 03/04/15) Patient History Past Medical History: see triage record Last Menstrual Period: HYS Now: No Reviewed Nursing Documentation: PMH: Agreed; PSxH: Agreed Nursing Documentation-PMH Past Medical History: No History, Except For Hx Hypertension: Yes Hx Diabetes: Yes Review of Systems All Other Systems: negative except mentioned in HPI Physical Exam Vital Signs Date Time Temp Pulse Resp B/P (MAP) Pulse Ox O2 Delivery O2 Flow Rate FiO2 03/23/18 13:15 98.4 84 179/72 93 Room Air 03/23/18 13:28 22 Sp02 EP Interpretation: reviewed, normal General Appearance: well appearing, no apparent distress, alert, GCS 15, non- toxic Head: normocephalic, atraumatic Eyes: bilateral eye normal inspection, bilateral eye PERRL ENT: hearing grossly normal, normal pharynx, no angioedema, normal voice, uvula midline, moist mucus membranes Neck: full range of motion Respiratory: lungs clear, normal breath sounds, no rhonchi, no respiratory distress, no accessory muscle use, no wheezing, speaking full sentences Cardiovascular #1: regular rate, rhythm, no edema Gastrointestinal: non tender, soft, no mass, non-distended, no guarding, no rebound Genitourinary: no CVA tenderness Musculoskeletal: back normal, digits/nails normal, gait/station normal, normal range of motion, non-tender Neurologic: alert, oriented x3, responsive, motor strength/tone normal, sensory intact Psychiatric: mood/affect normal Skin: no rash Medical Decision Making PA Attestation Dr. Grewal is my supervising Physician whom patient management has been discussed with. Diagnostic Impression: Primary Impression: Dysuria ER Course Pt presents to ED c/o urinary symptoms. DDX considered but are not limited to cystitis, pyelonephritis, STI, vaginitis, , BV, yeast infection. No abdominal TTP, negative obturator, negative Benavides, negative Rovsing, low suspicion for cholecystitis or appendicitis, does not require imaging or labs at this time. VITAL SIGNS are WNL, patient is afebrile. Ordered UA. ER COURSE UA results show no signs of infection, does not require antibiotic treatment at this time. Will provide patient with Pyridium. Advised patient on side effect may turn urine orange. If concern for STI, followup with STI clinic for testing and treatment. Denies STI concern. Patient previously treated for STI at PCP office. Follow-up at scheduled appointment. Patient is resting comfortably in chair, nontoxic appearing, in no acute distress. Patient states they feel better and is ready to go home. DISCHARGE -Rx provided for Phenazopyridine for pain. Patient is stable for discharge. Patient resting comfortably, in no acute distress, nontoxic appearing, talking without difficulty. Will provide with patient care instructions and any necessary prescriptions. Patient understands and agrees to treatment plan. Patient encouraged to drink plenty of fluids. Patient to take medication as instructed. Care plan and follow-up instructions provided. Patient questions asked and answered. Reports understanding and agreement to treatment plan. Patient instructed to follow-up with primary care provider in 3 - 5 days. ER precautions given. Patient instructed to return to ER immediately for any new or worsening of symptoms. Including but not limited to fever, abdominal pain , intractable vomiting. - Please note that this Emergency Department Report was dictated using [employer] technology software, occasionally this can lead to erroneous entry secondary to interpretation by the dictation equipment. Labs Test 03/23/18 13:30 Urine Color Pale yellow Urine Appearance Clear Urine pH 7 (4.5-8.0) Urine Specific [place] 1.005 (1.005-1.035) Urine Protein Negative (NEGATIVE) Urine Glucose (UA) Negative (NEGATIVE) Urine Ketones Negative (NEGATIVE) Urine Blood Negative (NEGATIVE) Urine Nitrite Negative (NEGATIVE) Urine Bilirubin Negative (NEGATIVE) Urine Urobilinogen Normal MG/DL (0.0-1.0) Urine Leukocyte Esterase Negative (NEGATIVE) Last Vital Signs Date Time Temp Pulse Resp B/P (MAP) Pulse Ox O2 Delivery O2 Flow Rate FiO2 03/23/18 13:28 98.3 78 22 175/75 94 Room Air Disposition: HOME, SELF-CARE Condition: Stable Scripts Phenazopyridine Hcl* (PYRIDIUM*) 100 Mg Tablet 100 MG ORAL THREE TIMES A DAY, #12 TAB Prov: Ashu Harvey 03/23/18 Referrals: [facility],REFERRING (PCP) Patient Instructions: Dysuria Additional Instructions: Followup with primary care provider and followup with and./or OBGYN. Drink plenty of fluids. Take medications as directed. Pyridium has SE of turning urine orange. Patient questions asked and answered. ER precautions given, patient instructed to return to ER immediately for any new or worsening of symptoms. Ashu Harvey Mar 23, 2018 14:31
[2018-03-23] MEDS ORDERED: PHENAZOPYRIDIN100 MG ORAL (14:35)
[2018-03-23 14:38] VITALS: BP 161/89
[2018-03-23 14:41] VITALS: BP 161/89
--- NOTE | 2018-03-23 14:41 | NUR ---
ED Nurse Note: Pt is clear to be discharged by ERMD. Discharge paper and prescription given, pt verbalized understanding of discharge instruction. Aox4, VSS. Wristband removed. Pt ambulated out with steady gait with all belongings.
== END 2018-03-23 14:41 | disposition home or self-care (01) ==
LOC: EMR 13:58
DX: R30.0 Dysuria (principal); I10 Essential (primary) hypertension; E11.9 Type 2 diabetes mellitus without complications
CPT/HCPCS: 81003; 99283

== ENCOUNTER 2018-03-28 16:38 | Emergency (ER) | payer OTHER ==
[~2018-03-28] VITALS: Ht 160 cm; Wt 78.9 kg
[~2018-03-28 16:38] MED LIST changes: +PHENAZOPYRIDIN100 MG ORAL
[2018-03-28] MEDS ORDERED: AMLODIPINE BESY10 MG ORAL (16:48)
[2018-03-28 16:50] VITALS: BP 153/67
[2018-03-28] MEDS ORDERED: Sodium Chloride 500ML 500 ML IV ONE (17:45)
[2018-03-28 18:01] LABS: APPEARANCE,URINE CLEAR; BILIRUBIN, URINE NEGATIVE (NEGATIVE); COLOR,URINE PALE YELLOW; EOSINOPHILS % (AUTO) 1.6 % (0.0-3.0); GLUCOSE, URINE (UA) 4+ (NEGATIVE); HEMATOCRIT 42.3 % (37.0-47.0); HEMOGLOBIN 14.4 G/DL (12.0-16.0); KETONES,URINE NEGATIVE (NEGATIVE); LEUKOCYTE ESTERASE ,URINE NEGATIVE (NEGATIVE); LYMPHOCYTES % (AUTO) 30.1 % (20.0-45.0); MEAN CORPUSCULAR VOLUME 97 FL (80-99); MONOCYTES % (AUTO) 7.9 % (1.0-10.0); NEUTROPHILS % (AUTO) 59.4 % (45.0-75.0); NITRITE,URINE NEGATIVE (NEGATIVE); PH,URINE 7 (4.5-8.0); PLATELET COUNT 308 K/UL (150-450); PROTEIN,URINE NEGATIVE (NEGATIVE); RED BLOOD COUNT 4.38 M/UL (4.20-5.40); RED CELL DISTRIBUTION WIDTH 11.7 % (11.6-14.8); UROBILINOGEN,URINE NORMAL MG/DL (0.0-1.0); WHITE BLOOD COUNT 7.5 K/UL (4.8-10.8)
[2018-03-28 18:02] LABS: ANION GAP 7 mmol/L (5-15); BLOOD UREA NITROGEN 13 mg/dL (7-18); CALCIUM 9.6 MG/DL (8.5-10.1); CARBON DIOXIDE 30 MMOL/L (21-32); CHLORIDE 102 MMOL/L (98-107); CREATININE 0.8 MG/DL (0.55-1.30); POTASSIUM 3.9 MMOL/L (3.5-5.1); SODIUM 139 MMOL/L (136-145)
[2018-03-28 18:06] LABS: ALANINE AMINOTRANSFERASE 30 U/L (12-78); ALBUMIN 3.8 G/DL (3.4-5.0); ALKALINE PHOSPHATASE 76 U/L (46-116); ASPARTATE AMINO TRANSFERASE 17 U/L (15-37); BILIRUBIN,TOTAL 0.2 MG/DL (0.2-1.0)
[2018-03-28 20:30] VITALS: BP 153/67
[2018-03-28] MEDS ORDERED: ONDANSETRON ODT4 MG BC (21:01)
[2018-03-28] MEDS ORDERED: DICYCLOMINE HCL10 MG PO (21:01)
--- NOTE | 2018-03-28 21:14 | Emergency Room Report ---
History of Present Illness General Chief Complaint: Nausea, Vomiting, and Diarrhea Source: Patient Present Illness HPI Patient is a 62-year-old female presented after increased epigastric discomfort as well as nausea vomiting and diarrhea. Patient had similar symptoms in the past. She was noted to have increased abdominal pain. Patient was stated that she had been seen by her equipment man in the morning. He had given her a order for C. difficile culture. Patient denies recent antibiotic use. She been having increased watery diarrhea as well as abdominal discomfort.Patient denies any fever. She denies any hematemesis or bloody stools. Allergies: Coded Allergies: NO KNOWN ALLERGIES (Unverified Allergy, Unknown, 03/28/18) Patient History Past Medical History: see triage record Reviewed Nursing Documentation: PMH: Agreed; PSxH: Agreed Nursing Documentation-PMH Past Medical History: No History, Except For Hx Hypertension: Yes Hx Diabetes: Yes Review of Systems All Other Systems: negative except mentioned in HPI Physical Exam Vital Signs Date Time Temp Pulse Resp B/P (MAP) Pulse Ox O2 Delivery O2 Flow Rate FiO2 03/28/18 16:44 98.4 83 16 156/79 93 Room Air Sp02 EP Interpretation: reviewed, normal General Appearance: normal inspection, well appearing, no apparent distress, alert, GCS 15 Head: atraumatic ENT: normal ENT inspection, hearing grossly normal, normal voice Neck: normal inspection, full range of motion, supple, no bony tend Respiratory: normal inspection, lungs clear, normal breath sounds, no respiratory distress, no retraction, no wheezing Cardiovascular #1: regular rate, rhythm, no edema Gastrointestinal: normal inspection, normal bowel sounds, non tender, soft, no guarding, no hernia Genitourinary: no CVA tenderness Musculoskeletal: normal inspection, back normal, normal range of motion Neurologic: normal inspection, alert, oriented x3, responsive, marketing officer III-XII nml as tested, speech normal Psychiatric: normal inspection, judgement/insight normal, mood/affect normal Skin: normal inspection, normal color, no rash Medical Decision Making Diagnostic Impression: Primary Impression: Gastroenteritis ER Course Patient presented for abdominal pain. Differential diagnoses included ischemic bowel, appendicitis, perforated viscus, abdominal aortic aneurysm, inferior myocardial infarction, viral gastroenteritis because of complexity of patient's case laboratory testing and imaging studies were ordered. Last Vital Signs Date Time Temp Pulse Resp B/P (MAP) Pulse Ox O2 Delivery O2 Flow Rate FiO2 03/28/18 16:50 98.4 96 15 153/67 95 Room Air Status: improved Disposition: HOME, SELF-CARE Condition: Stable Scripts Dicyclomine Hcl* (DICYCLOMINE HCL*) 10 Mg Capsule 10 MG PO QID, #30 CAP Prov: Dalton Grewal MD 03/28/18 Ondansetron Odt* (ZOFRAN ODT*) 4 Mg Tab.rapdis 4 MG BC EVERY 8 HOURS, #10 TAB 0 Refills Prov: Dalton Grewal MD 03/28/18 Referrals: [facility],REFERRING (PCP) Patient Instructions: Gastritis, Adult Dalton Grewal MD Mar 28, 2018 21:14
--- NOTE | 2018-03-29 17:19 | Cardiology Report ---
APPROVED REPORT EKG Measurement Heart [id number] Normal sinus rhythm Nonspecific T wave abnormality Abnormal ECG
== END 2018-03-28 20:30 | disposition home or self-care (01) ==
LOC: EMR 17:19
DX: K52.9 Noninfective gastroenteritis and colitis, unspecified (principal); I10 Essential (primary) hypertension; E11.9 Type 2 diabetes mellitus without complications
CPT/HCPCS: 36415; 80053; 81003; 83690; 84484; 85025; 85610; 85730; 93005; 96374; 99284; J7040; J2405

== ENCOUNTER 2018-07-18 11:51 | Emergency (ER) | payer OTHER ==
[~2018-07-18] VITALS: Ht 160 cm; Wt 73.9 kg
[~2018-07-18 11:51] MED LIST changes: +AMLODIPINE BESY10 MG ORAL; +DICYCLOMINE HCL10 MG PO
--- NOTE | 2018-07-18 11:55 | NUR ---
pt went to the restroom when called for triage
--- NOTE | 2018-07-18 12:14 | NUR ---
ED Nurse Note: Pt came in due to LLQ abd. pain x 1 year. Denies blood in the stool and no N/V. Pt was seen by her GI doctor 2 months ago and prescribed meds for ulcer. Pt is AAO x4, ambulatory with unlabored breathing. Calm and relaxed. Attached to moshgiach.
[2018-07-18 12:39] VITALS: BP 150/75
--- NOTE | 2018-07-18 12:50 | NUR ---
ED Nurse Note: Collected blood/urine then sent.
--- NOTE | 2018-07-18 12:51 | NUR ---
HAND-OFF: Report given to [place] GAN.
[2018-07-18 12:57] LABS: APPEARANCE,URINE CLEAR; BILIRUBIN, URINE NEGATIVE (NEGATIVE); COLOR,URINE PALE YELLOW; GLUCOSE, URINE (UA) NEGATIVE (NEGATIVE); KETONES,URINE NEGATIVE (NEGATIVE); LEUKOCYTE ESTERASE ,URINE 1+ (NEGATIVE); NITRITE,URINE NEGATIVE (NEGATIVE); PH,URINE 6.5 (4.5-8.0); PROTEIN,URINE NEGATIVE (NEGATIVE); UROBILINOGEN,URINE NORMAL MG/DL (0.0-1.0)
[2018-07-18 13:01] LABS: BASOPHILS % (AUTO) 0.8 % (0.0-2.0); EOSINOPHILS % (AUTO) 2.3 % (0.0-3.0); HEMATOCRIT 43.1 % (37.0-47.0); HEMOGLOBIN 14.9 G/DL (12.0-16.0); LYMPHOCYTES % (AUTO) 26.8 % (20.0-45.0); MEAN CORPUSCULAR VOLUME 93 FL (80-99); MONOCYTES % (AUTO) 7.2 % (1.0-10.0); NEUTROPHILS % (AUTO) 62.9 % (45.0-75.0); PLATELET COUNT 338 K/UL (150-450); RED BLOOD COUNT 4.65 M/UL (4.20-5.40); RED CELL DISTRIBUTION WIDTH 12.1 % (11.6-14.8); WHITE BLOOD COUNT 7.9 K/UL (4.8-10.8)
[2018-07-18 13:14] LABS: ANION GAP 9 mmol/L (5-15); BLOOD UREA NITROGEN 13 mg/dL (7-18); CALCIUM 9.5 MG/DL (8.5-10.1); CARBON DIOXIDE 28 MMOL/L (21-32); CHLORIDE 103 MMOL/L (98-107); CREATININE 0.7 MG/DL (0.55-1.30); POTASSIUM 3.5 MMOL/L (3.5-5.1); SODIUM 140 MMOL/L (136-145)
[2018-07-18 13:19] LABS: ALANINE AMINOTRANSFERASE 32 U/L (12-78); ALBUMIN 4.1 G/DL (3.4-5.0); ALKALINE PHOSPHATASE 70 U/L (46-116); ASPARTATE AMINO TRANSFERASE 21 U/L (15-37); BILIRUBIN,TOTAL 0.4 MG/DL (0.2-1.0)
--- NOTE | 2018-07-18 13:20 | Emergency Room Report ---
History of Present Illness General Chief Complaint: Abdominal Pain Source: Patient Present Illness HPI The patient states that she has had left lower quadrant abdominal pain and intermittent epigastric pain for the past year. She has been seen by a physics tutor and under went an upper endoscopy and a colonoscopy. Last month she underwent a CT scan of her abdomen and pelvis which she brought here with her today. She is also had stool studies to include C. difficile and ova and parasites. She has these results with her and are negative. She states that her symptoms continue daily and are primarily after meals. She has done diet modification and does not drink soda or caffeine. She avoids dairy. She states that she is on a strict diet by her physics tutor and states that she is compliant with her diet. She denies recent illness. She denies new symptoms. She denies dysuria or hematuria. She has no other complaints. Allergies: Coded Allergies: NO KNOWN ALLERGIES (Unverified Allergy, Unknown, 03/28/18) Patient History Past Medical History: see triage record, DM, HTN Past Surgical History: hysterectomy Social History: Denies: smoking, alcohol use, drug use Last Menstrual Period: menopause Now: No Reviewed Nursing Documentation: PMH: Agreed; PSxH: Agreed Nursing Documentation-PMH Hx Hypertension: Yes Hx Diabetes: Yes Review of Systems All Other Systems: negative except mentioned in HPI Physical Exam Vital Signs Date Time Temp Pulse Resp B/P (MAP) Pulse Ox O2 Delivery O2 Flow Rate FiO2 07/18/18 12:04 98.2 79 16 94 Room Air 07/18/18 12:39 150/75 Sp02 EP Interpretation: reviewed, normal General Appearance: no apparent distress, alert, GCS 15, non-toxic Head: normocephalic, atraumatic Eyes: bilateral eye normal inspection, bilateral eye PERRL ENT: hearing grossly normal, normal pharynx, no angioedema, normal voice Neck: full range of motion, supple/symm/no masses Respiratory: chest non-tender, lungs clear, normal breath sounds, speaking full sentences Cardiovascular #1: regular rate, rhythm, no edema Gastrointestinal: normal bowel sounds, soft, non-distended, no guarding, no rebound, tenderness - TTP in the LLQ and epigastrium Rectal: deferred Musculoskeletal: back normal, gait/station normal, normal range of motion, non- tender Neurologic: alert, oriented x3, responsive, motor strength/tone normal, sensory intact, speech normal Psychiatric: judgement/insight normal, memory normal, mood/affect normal, no suicidal/homicidal ideation Skin: normal color, no rash, warm/dry, well hydrated Medical Decision Making Diagnostic Impression: Primary Impression: Abdominal pain Additional Impression: IBS (irritable bowel syndrome) ER Course I suspect this patient has irritable bowel syndrome. The patient has had a very thorough evaluation by gastroenterology to include upper endoscopy, colonoscopy and CT of the abdomen and pelvis. The patient brought in a CT of her abdomen and pelvis here and Dr. Gonzalez read the CT and there was no acute findings identified. The patient is also had stool studies. Laboratory workup here in the emergency Department is unremarkable. There is no evidence of urinary tract infection. The patient has chronic abdominal pain. I suspect IBS. I will start the patient on Bentyl and she is instructed to follow-up with her physics tutor. At this time, I did not identify an emergency medical condition. The patient is given close return precautions and follow-up instructions. Laboratory Tests Test 07/18/18 12:45 White Blood Count 7.9 K/UL (4.8-10.8) Red Blood Count 4.65 M/UL (4.20-5.40) Hemoglobin 14.9 G/DL (12.0-16.0) Hematocrit 43.1 % (37.0-47.0) Mean Corpuscular Volume 93 FL (80-99) Mean Corpuscular Hemoglobin 32.0 PG (27.0-31.0) H Mean Corpuscular Hemoglobin Concent 34.5 G/DL (32.0-36.0) Red Cell Distribution Width 12.1 % (11.6-14.8) Platelet Count 338 K/UL (150-450) Mean Platelet Volume 6.3 FL (6.5-10.1) L Neutrophils (%) (Auto) 62.9 % (45.0-75.0) Lymphocytes (%) (Auto) 26.8 % (20.0-45.0) Monocytes (%) (Auto) 7.2 % (1.0-10.0) Eosinophils (%) (Auto) 2.3 % (0.0-3.0) Basophils (%) (Auto) 0.8 % (0.0-2.0) Urine Color Pale yellow Urine Appearance Clear Urine pH 6.5 (4.5-8.0) Urine Specific [place] 1.010 (1.005-1.035) Urine Protein Negative (NEGATIVE) Urine Glucose (UA) Negative (NEGATIVE) Urine Ketones Negative (NEGATIVE) Urine Blood 1+ (NEGATIVE) H Urine Nitrite Negative (NEGATIVE) Urine Bilirubin Negative (NEGATIVE) Urine Urobilinogen Normal MG/DL (0.0-1.0) Urine Leukocyte Esterase 1+ (NEGATIVE) H Urine RBC 2-4 /HPF (0 - 2) H Urine WBC 2-4 /HPF (0 - 2) Urine Squamous Epithelial Cells Occasional /LPF Urine Bacteria Occasional /HPF (NONE) Sodium Level 140 MMOL/L (136-145) Potassium Level 3.5 MMOL/L (3.5-5.1) Chloride Level 103 MMOL/L (98-107) Carbon Dioxide Level 28 MMOL/L (21-32) Anion Gap 9 mmol/L (5-15) Blood Urea Nitrogen 13 mg/dL (7-18) Creatinine 0.7 MG/DL (0.55-1.30) Estimate Glomerular Filtration Rate > 60 mL/min (>60) Glucose Level 122 MG/DL (74-106) H Calcium Level 9.5 MG/DL (8.5-10.1) Total Bilirubin 0.4 MG/DL (0.2-1.0) Aspartate Amino Transferase (AST) 21 U/L (15-37) Alanine Aminotransferase (ALT) 32 U/L (12-78) Alkaline Phosphatase 70 U/L (46-116) Total Protein 8.1 G/DL (6.4-8.2) Albumin 4.1 G/DL (3.4-5.0) Globulin 4.0 g/dL Albumin/Globulin Ratio 1.0 (1.0-2.7) Lipase 75 U/L (73-393) Last Vital Signs Date Time Temp Pulse Resp B/P (MAP) Pulse Ox O2 Delivery O2 Flow Rate FiO2 07/18/18 12:39 98.2 65 18 150/75 98 Room Air Status: improved Disposition: HOME, SELF-CARE Condition: Improved Referrals: NON PHYSICIAN (PCP) Yarelis Siegel DO July 18, 2018 13:20
[2018-07-18] MEDS ORDERED: DICYCLOMINE HCL10 MG PO (14:13)
[2018-07-18 14:38] VITALS: BP 138/63
[2018-07-18 15:14] VITALS: BP 138/66
--- NOTE | 2018-07-18 15:15 | NUR ---
ER DISCHARGE NOTE: Patient is cleared to be discharged per ERMD, pt is aox4, on room air, with stable vital signs. pt was given dc and prescription instructions, pt was able to verbalize understanding, pt id band and iv site removed without complications. pt is able to ambulate with steady gait. pt took all belongings.
== END 2018-07-18 15:15 | disposition home or self-care (01) ==
LOC: EMR 12:45
DX: R10.32 Left lower quadrant pain (principal); K58.9 Irritable bowel syndrome, unspecified; Z90.710 Acquired absence of both cervix and uterus; E11.9 Type 2 diabetes mellitus without complications; I10 Essential (primary) hypertension
CPT/HCPCS: 36415; 80053; 81003; 83690; 85025; 99283

== ENCOUNTER 2019-05-05 13:11 | Emergency (ER) | payer MEDICARE, OTHER ==
[~2019-05-05] VITALS: Ht 152.4 cm; Wt 80.7 kg
--- NOTE | 2019-05-05 13:50 | NUR ---
ED Nurse Note: Patient came into ED from home c/o chest congestion, productive cough, and stuffy nose x 4 months. Patient AxO x 4, no s/s of acute distress.
[2019-05-05 13:51] VITALS: BP 169/88
[2019-05-05] MEDS ORDERED: Ipratropium 0.02% Inh Soln 2.5ml UD HHN ONE (14:30)
[2019-05-05] MEDS ORDERED: Albuterol ud Inhalation HHN ONE (14:30)
--- NOTE | 2019-05-05 14:50 | NUR ---
ED Nurse Note: Patient states she is unable to urinate at this time. Per Dr. Prince, patient does not need to provide urine.
--- NOTE | 2019-05-05 14:58 | Emergency Room Report ---
History of Present Illness General Chief Complaint: Upper Respiratory Illness Source: Patient (Jefry Prince MD) Present Illness HPI 63-year-old female presents ED for evaluation of cough. States she has had a cough for the last 4 months. Dry. Denies chest pain or shortness of breath. Denies fevers or chills. States her PMD had prescribed her loratadine and amoxicillin states her symptoms did not improve. Denies sick contacts or recent travel. No other aggravating relieving factors. Denies any other associated symptoms (Jefry Prince MD) Allergies: Coded Allergies: NO KNOWN ALLERGIES (Unverified Allergy, Unknown, 03/28/18) Patient History Past Medical History: DM, HTN Past Surgical History: none Pertinent Family History: none Social History: Denies: smoking, alcohol use, drug use Now: No Immunizations: UTD Reviewed Nursing Documentation: PMH: Agreed; PSxH: Agreed (Jefry Prince MD) Nursing Documentation-PMH Past Medical History: No History, Except For Hx Hypertension: Yes Hx Diabetes: Yes (Jefry Prince MD) Review of Systems All Other Systems: negative except mentioned in HPI (Jefry Prince MD) Physical Exam Vital Signs Date Time Temp Pulse Resp B/P (MAP) Pulse Ox O2 Delivery O2 Flow Rate FiO2 05/05/19 13:23 98.8 72 18 169/88 (115) 95 Room Air Sp02 EP Interpretation: reviewed, normal General Appearance: no apparent distress, alert, GCS 15, non-toxic Head: normocephalic, atraumatic Eyes: bilateral eye normal inspection, bilateral eye PERRL ENT: hearing grossly normal, normal pharynx, no angioedema, normal voice Neck: full range of motion, supple/symm/no masses Respiratory: chest non-tender, lungs clear, normal breath sounds, speaking full sentences Cardiovascular #1: regular rate, rhythm, no edema Cardiovascular #2: 2+ carotid (R), 2+ carotid (L), 2+ radial (R), 2+ radial (L) , 2+ dorsalis pedis (R), 2+ dorsalis pedis (L) Gastrointestinal: normal bowel sounds, non tender, soft, non-distended, no guarding, no rebound Rectal: deferred Genitourinary: normal inspection, no CVA tenderness Musculoskeletal: back normal, normal range of motion, gait/station normal, non- tender Neurologic: alert, motor strength/tone normal, oriented x3, sensory intact, responsive, speech normal Psychiatric: judgement/insight normal, memory normal, mood/affect normal, no suicidal/homicidal ideation Reflexes: 3+ bicep (R), 3+ bicep (L), 3+ tricep (R), 3+ tricep (L), 3+ knee (R) , 3+ knee (L) Lymphatic: no adenopathy (Jefry Prince MD) Medical Decision Making Medicare Attestation The history of Glendy Brantley has been reviewed and management options for her have been examined and discussed by Jefry Prince. I have personally examined and interviewed the patient. (Jefry Prince MD) Diagnostic Impression: Primary Impression: Bronchospasm Additional Impression: Hyperglycemia ER Course Please see above note. Work-up essentially negative lab espinoza aside from hyperglycemia. BNP is normal. White count is normal. Chest x-ray is abnormal however there is poor inspiration. On repeat exam patient has some bronchospasm. She states that she is currently taking ampicillin, cough syrup. Discussed findings and need for close follow-up. The patient states her glucose meter is not working. Discussed treatment plan with patient and son. Patient given copies of chest x- ray, EKG and labs. Patient improved and stable for outpatient observation and treatment. Urinalysis reviewed and negative. Laboratory Tests Test 05/05/19 14:50 05/05/19 17:14 White Blood Count 9.1 K/UL (4.8-10.8) Red Blood Count 4.67 M/UL (4.20-5.40) Hemoglobin 15.5 G/DL (12.0-16.0) Hematocrit 44.5 % (37.0-47.0) Mean Corpuscular Volume 95 FL (80-99) Mean Corpuscular Hemoglobin 33.2 PG (27.0-31.0) H Mean Corpuscular Hemoglobin Concent 34.8 G/DL (32.0-36.0) Red Cell Distribution Width 12.8 % (11.6-14.8) Platelet Count 331 K/UL (150-450) Mean Platelet Volume 7.0 FL (6.5-10.1) Neutrophils (%) (Auto) 63.5 % (45.0-75.0) Lymphocytes (%) (Auto) 27.5 % (20.0-45.0) Monocytes (%) (Auto) 6.5 % (1.0-10.0) Eosinophils (%) (Auto) 1.5 % (0.0-3.0) Basophils (%) (Auto) 1.0 % (0.0-2.0) Sodium Level 141 MMOL/L (136-145) Potassium Level 3.9 MMOL/L (3.5-5.1) Chloride Level 102 MMOL/L (98-107) Carbon Dioxide Level 28 MMOL/L (21-32) Anion Gap 11 mmol/L (5-15) Blood Urea Nitrogen 10 mg/dL (7-18) Creatinine 0.7 MG/DL (0.55-1.30) Estimate Glomerular Filtration Rate > 60 mL/min (>60) Glucose Level 248 MG/DL (74-106) H Calcium Level 9.4 MG/DL (8.5-10.1) Total Bilirubin 0.3 MG/DL (0.2-1.0) Aspartate Amino Transferase (AST) 22 U/L (15-37) Alanine Aminotransferase (ALT) 31 U/L (12-78) Alkaline Phosphatase 69 U/L (46-116) Troponin I 0.000 ng/mL (0.000-0.056) Pro-B-Type Natriuretic Peptide 35 pg/mL (0-125) Total Protein 8.1 G/DL (6.4-8.2) Albumin 4.1 G/DL (3.4-5.0) Globulin 4.0 g/dL Albumin/Globulin Ratio 1.0 (1.0-2.7) Urine Color Yellow Urine Appearance Clear Urine pH 6.5 (4.5-8.0) Urine Specific [place] 1.005 (1.005-1.035) Urine Protein Negative (NEGATIVE) Urine Glucose (UA) Negative (NEGATIVE) Urine Ketones Negative (NEGATIVE) Urine Blood Negative (NEGATIVE) Urine Nitrite Negative (NEGATIVE) Urine Bilirubin Negative (NEGATIVE) Urine Urobilinogen Normal MG/DL (0.0-1.0) Urine Leukocyte Esterase Negative (NEGATIVE) Lactic Acid Level 1.70 mmol/L (0.4-2.0) (Alvaro Schmid MD) EKG Diagnostic Results Rate: normal Rhythm: NSR ST Segments: no acute changes ASA given to the pt in ED: No (Jefry Prince MD) Rate: normal Rhythm: NSR ST Segments: no acute changes (Alvaro Schmid MD) Rhythm Strip Diag. Results EP Interpretation: yes Rhythm: NSR, no PVC's, no ectopy (Jefry Prince MD) EP Interpretation: yes Rhythm: NSR, no PVC's, no ectopy (Alvaro Schmid MD) Chest X-Ray Diagnostic Results Chest X-Ray Diagnostic Results : Chest X-Ray Ordered: Yes # of Views/Limited/Complete: 1 View Indication: Other EP Interpretation: Yes Interpretation: no effusion, no pneumothorax, other - Poor inspiration and increased lewis bilaterally Impression: Other Electronically Signed by: Electronically signed by Alvaro Schmid MD (Alvaro Schmid MD) Last Vital Signs Date Time Temp Pulse Resp B/P (MAP) Pulse Ox O2 Delivery O2 Flow Rate FiO2 05/05/19 13:51 72 18 Room Air 05/05/19 13:51 98.8 169/88 95 (Jefry Prince MD) Last Vital Signs Date Time Temp Pulse Resp B/P (MAP) Pulse Ox O2 Delivery O2 Flow Rate FiO2 05/05/19 18:43 98.8 78 18 154/87 100 Room Air 05/05/19 14:59 21 Status: improved (Alvaro Schmid MD) Disposition: HOME, SELF-CARE Condition: Improved Scripts Beclomethasone Dipropionate 40MCG Oral Inh (QVAR 40*) 7.3 Gm Aer.w.adap 2 PUFFS INH TWICE A DAY, #1 GM 0 Refills Prov: Alvaro Schmid MD 05/05/19 Blood-Glucose Meter (ADVOCATE BLOOD GLUCOSE MONITOR) 1 Each Each EACH MC NEEDED, #1 Prov: Alvaro Schmid MD 05/05/19 Codeine/Promethazine Hcl* (PROMETHAZINE-CODEINE SYRUP*) 118 Ml Syrup 5 ML ORAL Q6H PRN for For Cough, #90 ML 0 Refills Prov: Alvaro Schmid MD 05/05/19 Albuterol Sulfate* (ALBUTEROL SULFATE MDI*) 8.5 Gm Hfa.aer.ad 2 PUFF INH Q6H, #1 EA 0 Refills Prov: Alvaro Schmid MD 05/05/19 Jefry Prince MD May 05, 2019 14:58 Alvaro Schmid MD May 05, 2019 17:33
--- NOTE | 2019-05-05 15:02 | Diagnostic Imaging Report ---
Indication: Cough Technique: One view of the chest Comparison: 12/28/2017 Findings: Interim development of bilateral interstitial and airspace edema versus infiltrates. The heart is borderline enlarged. The pleural spaces are clear. Impression: Bilateral interstitial and airspace infiltrates versus edema
[2019-05-05 15:12] LABS: EOSINOPHILS % (AUTO) 1.5 % (0.0-3.0); HEMATOCRIT 44.5 % (37.0-47.0); HEMOGLOBIN 15.5 G/DL (12.0-16.0); LYMPHOCYTES % (AUTO) 27.5 % (20.0-45.0); MEAN CORPUSCULAR VOLUME 95 FL (80-99); MONOCYTES % (AUTO) 6.5 % (1.0-10.0); NEUTROPHILS % (AUTO) 63.5 % (45.0-75.0); PLATELET COUNT 331 K/UL (150-450); RED BLOOD COUNT 4.67 M/UL (4.20-5.40); RED CELL DISTRIBUTION WIDTH 12.8 % (11.6-14.8); WHITE BLOOD COUNT 9.1 K/UL (4.8-10.8)
[2019-05-05 15:24] LABS: ANION GAP 11 mmol/L (5-15); BLOOD UREA NITROGEN 10 mg/dL (7-18); CALCIUM 9.4 MG/DL (8.5-10.1); CARBON DIOXIDE 28 MMOL/L (21-32); CHLORIDE 102 MMOL/L (98-107); CREATININE 0.7 MG/DL (0.55-1.30); POTASSIUM 3.9 MMOL/L (3.5-5.1); SODIUM 141 MMOL/L (136-145)
[2019-05-05 15:38] LABS: ALANINE AMINOTRANSFERASE 31 U/L (12-78); ALBUMIN 4.1 G/DL (3.4-5.0); ALKALINE PHOSPHATASE 69 U/L (46-116); ASPARTATE AMINO TRANSFERASE 22 U/L (15-37); BILIRUBIN,TOTAL 0.3 MG/DL (0.2-1.0)
[2019-05-05 17:45] LABS: APPEARANCE,URINE CLEAR; COLOR,URINE YELLOW
[2019-05-05 17:46] LABS: BILIRUBIN, URINE NEGATIVE (NEGATIVE); GLUCOSE, URINE (UA) NEGATIVE (NEGATIVE); KETONES,URINE NEGATIVE (NEGATIVE); LEUKOCYTE ESTERASE ,URINE NEGATIVE (NEGATIVE); NITRITE,URINE NEGATIVE (NEGATIVE); PH,URINE 6.5 (4.5-8.0); PROTEIN,URINE NEGATIVE (NEGATIVE); UROBILINOGEN,URINE NORMAL MG/DL (0.0-1.0)
[2019-05-05] MEDS ORDERED: PROMETHAZINE-C118 M1 ORAL (18:34)
[2019-05-05] MEDS ORDERED: ADVOCATE BLOOD1 EACH MC (18:34)
[2019-05-05] MEDS ORDERED: ALBUTEROL SULF8.5 GM INH (18:34)
[2019-05-05] MEDS ORDERED: QVAR7.3 GM INH (18:36)
[2019-05-05 18:43] VITALS: BP 154/87
--- NOTE | 2019-05-05 18:43 | NUR ---
ER DISCHARGE NOTE: Patient is cleared to be discharged per ERMD, pt is aox4, on room air, with stable vital signs. pt was given dc and prescription instructions, pt was able to verbalize understanding, pt id band removed. pt is able to ambulate with steady gait. pt took all belongings.
== END 2019-05-05 18:48 | disposition home or self-care (01) ==
LOC: EMR 14:50
DX: J98.01 Acute bronchospasm (principal); E11.65 Type 2 diabetes mellitus with hyperglycemia; I10 Essential (primary) hypertension
CPT/HCPCS: 36415; 71045; 80053; 81003; 83605; 83880; 84484; 85025; 93005; 99284

== ENCOUNTER 2019-08-18 14:05 | Emergency (ER) | payer MEDICARE, OTHER ==
[~2019-08-18] VITALS: Ht 160 cm; Wt 78.9 kg
[~2019-08-18 14:05] MED LIST changes: +ADVOCATE BLOOD1 EACH MC; +ALBUTEROL SULF8.5 GM INH; +PROMETHAZINE-C118 M1 ORAL; +QVAR7.3 GM INH
--- NOTE | 2019-08-18 14:16 | NUR ---
ED Nurse Note: Patient walked into ED from home c/o coughing, which gets worse at night since 06/19/19. patient reports on and off fever. patient afebrile at triage. patient c/o congestion. temp at triage 98.1F oral. 92% on RA noted. patient is alert awake x3 ambulatory steady gait, breahting unlabored and even at this time, patient placed in a private room.
--- NOTE | 2019-08-18 14:17 | NUR ---
ED Nurse Note: notified to Emi CORNELIUS about patient's O2 saturation 92% on room air. endorsed to Magdalena GAN.
--- NOTE | 2019-08-18 14:18 | NUR ---
ED Nurse Note: Received patient from MALIK Rogers. Patient AAO x4, taiwanese speaking only, VSS at this time, patient's O2 sat 94% on RA
[2019-08-18 16:16] LABS: BASOPHILS % (AUTO) 1.5 % (0.0-2.0); EOSINOPHILS % (AUTO) 2.5 % (0.0-3.0); HEMATOCRIT 43.5 % (37.0-47.0); HEMOGLOBIN 14.2 G/DL (12.0-16.0); LYMPHOCYTES % (AUTO) 29.4 % (20.0-45.0); MEAN CORPUSCULAR VOLUME 99 FL (80-99); MONOCYTES % (AUTO) 8.9 % (1.0-10.0); NEUTROPHILS % (AUTO) 57.8 % (45.0-75.0); PLATELET COUNT 309 K/UL (150-450); RED BLOOD COUNT 4.39 M/UL (4.20-5.40); RED CELL DISTRIBUTION WIDTH 12.6 % (11.6-14.8); WHITE BLOOD COUNT 8.2 K/UL (4.8-10.8)
[2019-08-18 16:24] VITALS: BP 153/78
--- NOTE | 2019-08-18 16:29 | Diagnostic Imaging Report ---
Indication: Cough Technique: One view of the chest Comparison: 05/05/2019 Findings: Previously demonstrated infiltrates are no longer evident. Lungs and pleural spaces are currently clear. The heart size is normal. Impression: No acute process Previously demonstrated parenchymal disease is no longer evident
[2019-08-18 16:31] LABS: ANION GAP 9 mmol/L (5-15); BLOOD UREA NITROGEN 12 mg/dL (7-18); CARBON DIOXIDE 27 MMOL/L (21-32); CHLORIDE 102 MMOL/L (98-107); CREATININE 0.8 MG/DL (0.55-1.30); POTASSIUM 3.7 MMOL/L (3.5-5.1); SODIUM 138 MMOL/L (136-145)
[2019-08-18 16:37] LABS: LACTATE DEHYDROGENASE 333 U/L (81-234)
[2019-08-18 16:48] LABS: ALANINE AMINOTRANSFERASE 30 U/L (12-78); ALBUMIN/GLOBULIN RATIO 1.1 (1.0-2.7); ALKALINE PHOSPHATASE 63 U/L (46-116); ASPARTATE AMINO TRANSFERASE 22 U/L (15-37); BILIRUBIN,TOTAL 0.4 MG/DL (0.2-1.0); CKMB 3.4 NG/ML (0.0-3.6); CREATINE KINASE 206 U/L (26-308); FERRITIN 76 NG/ML (8-388)
[2019-08-18 16:52] LABS: APPEARANCE,URINE CLEAR; BILIRUBIN, URINE NEGATIVE (NEGATIVE); COLOR,URINE PALE YELLOW; GLUCOSE, URINE (UA) NEGATIVE (NEGATIVE); KETONES,URINE NEGATIVE (NEGATIVE); LEUKOCYTE ESTERASE ,URINE NEGATIVE (NEGATIVE); NITRITE,URINE NEGATIVE (NEGATIVE); PH,URINE 7 (4.5-8.0); PROTEIN,URINE NEGATIVE (NEGATIVE); UROBILINOGEN,URINE NORMAL MG/DL (0.0-1.0)
[2019-08-18] MEDS ORDERED: cefTRIAXone 1 GM in NS 55 ML IVPB ONE (17:00)
--- NOTE | 2019-08-18 17:18 | Emergency Room Report ---
History of Present Illness General Chief Complaint: Upper Respiratory Illness Source: Patient Present Illness HPI 64-year-old female with history of hypertension and type 2 diabetes currently controlled medication here complaining of over 1 month of cough and congestion with yellow phlegm and shortness of breath. Patient reports that the shortness of breath is worse when laying down. Denies any abdominal pain, acid reflux, nausea vomiting, diarrhea. Denies any headache and dizziness at this time. Denies any loss of taste and smell. Has not taken medication for symptom relief. Patient was previously seen at [facility] in April 2019 and chest x- ray looked to have more consolidations. Denies chest pain at this time. Oxygenation is 91 to 92%. Denies tobacco smoke and drug use. Patient is afebrile. Allergies: Coded Allergies: NO KNOWN ALLERGIES (Unverified Allergy, Unknown, 03/28/18) COVID-19 Screening Contact w/high risk pt: No Recent Travel to affected area: No Experienced COVID-19 symptoms?: Yes COVID-19 symptoms experienced: Fever (T>100.4F or >38C), Cough COVID-19 Testing performed CHIP UNLOADER: No Patient History Past Medical History: see triage record Past Surgical History: none Pertinent Family History: none Now: No Immunizations: UTD Reviewed Nursing Documentation: PMH: Agreed; PSxH: Agreed Nursing Documentation-PMH Past Medical History: No History, Except For Hx Hypertension: Yes Hx Diabetes: Yes Review of Systems All Other Systems: negative except mentioned in HPI Physical Exam Vital Signs Date Time Temp Pulse Resp B/P (MAP) Pulse Ox O2 Delivery O2 Flow Rate FiO2 6/5/20 14:16 98.1 71 19 153/78 (103) 92 Room Air Sp02 EP Interpretation: reviewed, abnormal - Oxygenation is between 91 to 92% General Appearance: no apparent distress, alert, GCS 15, non-toxic Head: normocephalic, atraumatic Eyes: bilateral eye normal inspection, bilateral eye PERRL ENT: hearing grossly normal, normal pharynx, no angioedema, normal voice Neck: full range of motion, supple/symm/no masses Respiratory: chest non-tender, lungs clear, normal breath sounds, no rhonchi, no retraction, speaking full sentences Cardiovascular #1: regular rate, rhythm, no edema Gastrointestinal: normal bowel sounds, non tender, soft, non-distended, no guarding, no rebound Rectal: deferred Genitourinary: no CVA tenderness Musculoskeletal: back normal, no calf tenderness Neurologic: alert, motor strength/tone normal, oriented x3, sensory intact, responsive, speech normal Psychiatric: judgement/insight normal, memory normal, mood/affect normal, no suicidal/homicidal ideation Skin: no rash Lymphatic: no adenopathy Medical Decision Making PA Attestation All my diagnosis and treatment plans were reviewed ad discussed with my supervising physician Dr. Grewal Diagnostic Impression: Primary Impression: Pneumonitis ER Course 64-year-old female with history of hypertension and type 2 diabetes currently controlled medication here complaining of over 1 month of cough and congestion with yellow phlegm and shortness of breath. Patient reports that the shortness of breath is worse when laying down. Denies any abdominal pain, acid reflux, nausea vomiting, diarrhea. Denies any headache and dizziness at this time. Denies any loss of taste and smell. Has not taken medication for symptom relief. Patient was previously seen at [facility] in April 2019 and chest x- ray looked to have more consolidations. Denies chest pain at this time. Oxygenation is 91 to 92%. Denies tobacco smoke and drug use. Patient is afebrile. Ddx considered but are not limited to: Coronavirus, pneumonitis bronchitis, PNA , URI viral, bacterial bronchitis Vital signs: are WNL, pt. is afebrile H&PE are most consistent with: Pneumonitis ORDERS: Sepsis order, LDH, d-dimer, ferritin, CRP, Colyte swab, albuterol inhaler, prednisone, azithromycin ED INTERVENTIONS: NS bolus, ceftriaxone DISCHARGE: At this time pt. is stable for d/c to home. Will provide printed patient care instructions, and any necessary prescriptions. Care plan and follow up instructions have been discussed with the patient prior to discharge. Patient is stable to be discharged and self quarantine at home. Pending call with testing results. Patient chest x-ray appears to be improving compared to her chest x-ray that was done at [facility] in April 2019. Patient is in no distress. However advised to return to the emergency room if worsening symptoms. EKG Diagnostic Results Rate: normal Rhythm: NSR ST Segments: no acute changes Other Impression No acute ST changes Chest X-Ray Diagnostic Results Chest X-Ray Diagnostic Results : Chest X-Ray Ordered: Yes # of Views/Limited/Complete: 1 View Indication: Shortness of Breath EP Interpretation: Yes ADRYAN Xray: Interpretation reviewed, by supervising MD, and agrees with findings. Interpretation: no consolidation, no effusion, no pneumothorax Impression: No acute disease Electronically Signed by: Emi Carson PA-C Last Vital Signs Date Time Temp Pulse Resp B/P (MAP) Pulse Ox O2 Delivery O2 Flow Rate FiO2 08/18/19 16:24 98.1 19 153/78 92 Room Air 08/18/19 14:16 71 Disposition: HOME, SELF-CARE Condition: Stable Scripts Albuterol Sulfate* (Albuterol Sulfate Hfa*) 8.5 Gm Hfa.aer.ad 2 PUFF INH Q4H, #1 INH Prov: Emi Bean 08/18/19 Prednisone* (PREDNISONE*) 20 Mg Tablet 40 MG ORAL DAILY for 5 Days, #10 TAB Prov: Emi Bean 08/18/19 Azithromycin* (ZITHROMAX*) 250 Mg Tablet 250 MG ORAL DAILY, #6 TAB 0 Refills Take two tables once daily for 1 day, then one tablet once daily for 4 days. Prov: Emi Bean 08/18/19 Referrals: NON PHYSICIAN (PCP) Patient Instructions: Pneumonitis Additional Instructions: Take medication as directed, follow-up with your primary doctor, worsening symptoms return to the emergency room Emi Bean Aug 18, 2019 17:18
[2019-08-18] MEDS ORDERED: PREDNISONE20 MG ORAL (17:20)
[2019-08-18] MEDS ORDERED: ALBUTEROL SULF8.5 G1 INH (17:20)
[2019-08-18] MEDS ORDERED: ZITHROMAX250 MG ORAL (17:20)
[2019-08-18 17:34] VITALS: BP 153/78
== END 2019-08-18 17:34 | disposition home or self-care (01) ==
LOC: EMR 14:15
DX: J18.9 Pneumonia, unspecified organism (principal); E11.9 Type 2 diabetes mellitus without complications; I10 Essential (primary) hypertension
CPT/HCPCS: 36415; 36600; 71045; 80053; 81003; 82550; 82553; 82728; 82803; 83605; 83615; 84484; 85025; 85379; 85610; 85730; 86140; 87040; 93005; 96361; 96365; 99284; J0696